=== PATIENT | male | born 1985 | race Two or more races ===

== ENCOUNTER 2021-02-10 14:06 | Emergency (ER) | payer OTHER ==
[~2021-02-10] VITALS: Ht 170.2 cm; Wt 93.0 kg
--- NOTE | 2021-02-10 14:15 | NUR ---
PT TO ER BED 01 C/O L HAND PAIN S/P FALLING DOWN WHILE ARRESTING AN AGITATED PATIENT. PT DENIES ANY OTHER INJURY. NO OBVIOUS DEFORMITY NOTED UOPON ASSESSMENT. STABLE VITALS. AWAITING MD JOHNSTON.
--- NOTE | 2021-02-10 14:21 | NUR ---
DR BLANCHARD AT BEDSIDE FOR EVAL.
--- NOTE | 2021-02-10 14:36 | NUR ---
RADIOLOGY AT BEDSIDE FOR L HAND XRAY.
[2021-02-10 15:08] VITALS: BP 145/80
--- NOTE | 2021-02-10 15:08 | NUR ---
Patient discharged to home in stable condition. Written and verbal after care instructions given. Patient verbalizes understanding of instruction.
== END 2021-02-10 15:09 | disposition home or self-care (01) ==
LOC: ER 14:12
DX: S60.222A Contusion of left hand, initial encounter (principal); W18.39XA Other fall on same level, initial encounter; Y93.89 Activity, other specified; Y92.89 Other specified places as the place of occurrence of the external cause; Y99.8 Other external cause status
CPT/HCPCS: 73130-TC